=== PATIENT | male | born 1960 | race Hispanic/Latino ===

== ENCOUNTER → 2025-03-04 | Outpatient (CLI) | payer OTHER ==
--- NOTE | 2025-03-05 10:59 | HMCIMG ---
CT LUMBAR SPINE W/O CONTRAST HISTORY: Unspecified kyphosis, site unspecified COMPARISON: None TECHNIQUE: CT lumbar spine was performed with/without IV contrast. Coronal and sagittal reformats were submitted for review. CONTRAST: mL of Isovue FINDINGS: Evaluation of the cord is limited with CT. No evidence of compression fracture or subluxation. Multilevel spondylosis. No disc degenerative disease.Paraspinal soft tissues are unremarkable. Aorta is normal in caliber. For the purposes of this dictation, the lowermost, fully formed disc will be counted as the L5-S1 disc level assuming 5 nonrib-bearing lumbar vertebral segments. INTRAVERTEBRAL LEVELS: L1-2: No disc herniation. There is mild disc bulge. No central canal stenosis or neural foraminal narrowing. L2-3: No disc herniation. There is mild disc bulge.. No central canal stenosis or neural foraminal narrowing. L3-4: There is mild disc paracentral herniation with associated mild central canal stenosis. There is no evidence of any foraminal narrowing.. The mild disc herniation is 4 mm. L4-5: There is evidence 8mm paracentral disc disc herniation which is causing moderate spinal canal stenosis with bilateral neural foraminal narrowing.. L5-S1: There is a 6.83 mm right paracentral disc herniation which is causing a mild spinal stenosis with right-sided neuroforaminal narrowing.. There is diffuse atherosclerotic changes of the abdominal aorta and iliac vessels with calcified plaque. IMPRESSION: Multilevel disc disease with disc herniation as described above in the lower lumbar spine..
== END | disposition home or self-care (01) ==
LOC: RAH 14:04
PROVIDERS: ATTEND Internal Medicine
DX: M47.817 Spondylosis without myelopathy or radiculopathy, lumbosacral region (principal); M51.26 Other intervertebral disc displacement, lumbar region; I70.0 Atherosclerosis of aorta; M48.07 Spinal stenosis, lumbosacral region; M51.369 Other intervertebral disc degeneration, lumbar region without mention of lumbar back pain or lower extremity pain; M51.379 Other intervertebral disc degeneration, lumbosacral region without mention of lumbar back pain or lower extremity pain; M40.209 Unspecified kyphosis, site unspecified
CPT/HCPCS: 72131